=== PATIENT | male | born 1965 | race Two or more races ===

== ENCOUNTER 2025-03-16 07:52 | Outpatient (CLI) | payer MEDICARE, MEDICAID ==
--- NOTE | 2025-03-16 09:12 | RADIOLOGY REPORT ---
CLINICAL INFORMATION: Elevated liver enzymes. TECHNIQUE: Grayscale sonographic imaging of the right upper quadrant of the abdomen was performed, a ssisted by color Doppler techniques. COMPARISON: None FINDINGS: Partially contracted gallbladder. The gallbladder wall measures 2.6 mm in thickness, with in normal limits. No stones are seen. The common bile duct measures 9 mm in diameter, mildly dilated . Hepatomegaly, with the liver measuring up to 18 cm in craniocaudal dimension. Increased echogenicity of the liver consistent with fatty infiltration. The pancreas is partly obscured, likely by bowel gas. The visualized portions appear mildly heterogen eous. The right kidney measures 11.5 cm. There is no hydronephrosis. Right renal cortical echogenicity a nd cortical thickness are within normal limits. Small echogenic foci, possibly nonobstructing calculi in the right kidney. IMPRESSION: 1. Dilated common bile duct. Common bile duct obstruction not excluded. MRCP could be considered to further characterize. 2. Partially contracted gallbladder. No gallstones visualized. 3. Hepatomegaly and hepatic steatosis.Additional 4. Findings as described above.
== END 2025-03-16 23:59 | disposition home or self-care (01) ==
LOC: US 07:52
PROVIDERS: ATTEND Nurse Practitioner
DX: R16.0 Hepatomegaly, not elsewhere classified (principal); K76.0 Fatty (change of) liver, not elsewhere classified; R74.8 Abnormal levels of other serum enzymes
CPT/HCPCS: 76700